=== PATIENT | female | born 1955 | race Caucasian/White ===

== ENCOUNTER 2017-01-09 18:21 | Observation (INO) | payer OTHER, MEDICARE ==
[2017-01-09 18:32] LABS: BASOPHIL# 0.1 X 10^3uL (0.0-0.1); BASOPHILS 0.7 % (0.0-2.0); EOSINOPHILS 1.8 % (0.0-6.0); EOSINOPHILS# 0.2 X 10^3uL (0.0-0.4); HEMOGLOBIN 16.1 g/dL (12.0-16.0); LYMPHOCYTES 26.7 % (20.0-40.0); LYMPHOCYTES# 2.5 X 10^3uL (0.8-3.8); MEAN CELL VOLUME 90.6 fL (80.0-100.0); MEAN CORPUSCULAR HEMOGLOBIN 31.7 pg (29.0-35.0); MEAN PLATELET VOLUME 8.8 fL (7.4-10.4); MONOCYTES 5.9 % (2.0-10.0); MONOCYTES# 0.6 X 10^3uL (0.2-1.0); NEUTROPHILS 64.9 % (54.0-75.0); RED BLOOD COUNT 5.07 X 10^6uL (4.20-6.10); RED CELL DISTRIBUTION WIDTH 12.3 % (11.5-14.5); WHITE BLOOD COUNT 9.4 X 10^3uL (3.9-10.7)
[2017-01-09 18:42] LABS: CALCIUM 9.6 mg/dL (8.4-10.2); POTASSIUM 3.7 mmol/L (3.5-5.1)
[2017-01-09 18:54] LABS: TROPONIN I 0.02 ng/mL (0.00-0.034)
[2017-01-09 20:12] LABS: URINE MUCUS NONE SEEN (Up to 25%); URINE RBC NONE SEEN (0-5/hpf)
[2017-01-09 20:45] LABS: ALBUMIN 4.6 g/dL (3.5-5.0); BILIRUBIN, DIRECT 0.2 mg/dL (0.0-0.4); BILIRUBIN, TOTAL 0.8 mg/dL (0.2-1.3)
[2017-01-09 20:48] LABS: URINE APPEARANCE CLEAR; URINE COLOR YELLOW; URINE LEUKOCYTE ESTERASE NEGATIVE (NEGATIVE); URINE NITRITE NEGATIVE (NEGATIVE); URINE PROTEIN 10mg/dL (trace) (NEG - TRACE)
[2017-01-09 20:49] LABS: URINE BILIRUBIN NEGATIVE (NEGATIVE); URINE BLOOD TRACE (NEGATIVE); URINE GLUCOSE NORMAL (NEGATIVE); URINE KETONE NEGATIVE (NEGATIVE); URINE SQUAMOUS EPITHELIAL CELL 0-5/hpf (<= 15/hpf); URINE UROBILINOGEN NORMAL (NEG-1mg/dL); URINE WBC 0-4/hpf (0-4/hpf)
[2017-01-09 20:50] LABS: URINE BACTERIA NONE SEEN (<10/hpf)
[2017-01-09] MEDS ORDERED: PREGABALIN 75 MG CAPSULE PO SCH (21:00)
[2017-01-09] MEDS ORDERED: FAMOTIDINE 20 MG TABLET PO SCH (21:00)
[2017-01-09] MEDS ORDERED: HOME MEDICATION LIST NEEDED 1 EA EACH MISC ONE (22:10)
[2017-01-09] MEDS ORDERED: MAG-AL PLUS XS SUSP 30 ML UDC PO PRN (22:10)
[2017-01-09] MEDS ORDERED: POLYETHYLENE GLYCOL 3350 17 GM POWD.PACK PO PRN (22:10)
[2017-01-09] MEDS ORDERED: ACETAMINOPHEN 325 MG TABLET PO PRN (22:10)
[2017-01-09] MEDS ORDERED: MORPHINE SULFATE 2 MG/ML SYR IV PRN (22:19)
[2017-01-09] MEDS ORDERED: ONDANSETRON HCL 4 MG/2 ML VIAL IV PRN (22:25)
[2017-01-09] MEDS ORDERED: NORMAL SALINE 1,000 ML IV SCH (23:00)
--- NOTE | 2017-01-09 23:10 | ER PHYSICIAN DOCUMENTATION ---
Physician Documentation [facility] Name:Charlie Lewis Age:61 yrs Sex:Female :1955 Arrival Date:01/09/2017 Time:18:21 Bed4 Private MD:Aaron Smith ED, John Disposition: 01/09/17 20:48 Admit ordered for Ivana Bishop. Preliminary diagnosis are Dehydration, Acute Renal/Kidney Failure, Nontraumatic. - Bed requested for Medical/Surgical. - Condition is Fair. - Problem is new. - Symptoms have improved. 23 HR OBS Yes HPI: 01/09 19:36 This 61 yrs old Female presents to ER via EMS with complaints of Near Syncope.jm 19:36 The patient has experienced near-syncope, almost passed out, felt dizzy. Onset: The jm symptom(s)/episode began/occurred today. Duration: The patient has had multiple episodes. Context: occurred while the patient was standing. Associated injury: The patient did not suffer any apparent associated injury. Associated signs and symptoms: Pertinent positives: diaphoresis, dizziness, lightheadedness, nausea, vomiting. The patient has experienced similar episodes in the past, Pt w hx of hypotension . Pt here for vomiting, near syncope, and dizziness. Pt has been measuring her BP at home and its been low. . Historical: - Allergies: Requip; Phenergan; - Home Meds: 1. morphine 2. hctz 3. Lisinopril Oral 4. Clonidine Oral 5. Cytomel Oral 6. ecitalopram 7. Nexium Oral 8. Ranitidine Oral - PMHx: GERD; anemia; atypical NM; renal failure- acute; liver damage; - PSHx: spinal fusion and other spine surgeries; - Tetanus: < 10 years. - Ebola Screening: : Patient negative for fever greater than or equal to 101.5 degrees Fahrenheit, and additional compatible Ebola Virus Disease symptoms. Patient denies exposure to infectious person. Patient denies travel to an Ebola-affected area in the 21 days before illness onset. No symptoms or risks identified at this time. . - Immunization history: Flu Vaccine unknown. - Social history: Smoking status: Patient states was never smoker of tobacco. ROS: 20:30 Constitutional: Negative for fever. jm 20:30 ENT: Negative for rhinorrhea, sinus congestion. 20:30 Cardiovascular: Negative for chest pain. 20:30 Abdomen/GI: Positive for nausea, vomiting, Negative for abdominal pain. 20:30 Neuro: Positive for dizziness, near syncope. 20:30 All other systems are negative. Exam: 20:31 Constitutional: The patient appears alert, awake, comfortable. 20:31 Eyes: Periorbital structures: appear normal, Conjunctiva: normal. 20:31 ENT: Mouth: is normal, Voice: is normal. 20:31 Neck: Thyroid: appears normal, Trachea: is midline with no obvious abnormalities. 20:31 Cardiovascular: Rate: normal, Rhythm: regular. 20:31 Respiratory: Respirations: normal, Breath sounds: are normal. 20:31 Abdomen/GI: Bowel sounds: normal, Palpation: abdomen is soft and non-tender. 20:31 Musculoskeletal/extremity: Pulses: are normal with no appreciated deficits, Sensation intact. 20:31 Skin: Appearance: Color: pink, no rash present. 20:31 Neuro: Mentation: is normal, Memory: is normal. 20:31 Psych: Behavior/mood is pleasant, cooperative, Affect is calm. Vital Signs: 18:32 BP 128 / 44; Pulse 72; Resp 16; Temp 98.9(O); Pulse Ox 91% on R/A; Weight 72.57 kg (R); tg Height 5 ft. 4 in. (162.56 cm) (R); Pain 0/10; 19:00 BP 85 / 35; Pulse 60; Resp 17; Pulse Ox 91% on 2 lpm NC; lb 19:32 BP 90 / 43; Pulse 61; Resp 16; Pulse Ox 94% on 2 lpm NC; lb 20:03 BP 109 / 46; Pulse 60; Resp 15; Pulse Ox 95% 2 lpm ; lb 22:19 BP 121 / 54; Pulse 61; Resp 15; Pulse Ox 95% on 2 lpm NC; Pain 0/10; lb 23:07 BP 96 / 40; Pulse 61; Resp 14; Pulse Ox 96% on 2 lpm NC; Pain 0/10; lb 18:32 Body Mass Index 27.46 (72.57 kg, 162.56 cm) tg MDM: 18:25 Patient medically screened. 19:51 EKG attached nf 20:31 Differential Diagnosis: dehydration, hypotension, renal insufficiency. . Neurological jm re-evaluation: normal neurological exam including cranial nerves, orientation, mentation, motor and sensory exam, cerebellar testing, GCS normal, and normal gait. Data reviewed: vital signs, nurses notes, old medical records, lab test result(s), EKG, radiologic studies, and as a result, I will admit patient. Test interpretation: by ED physician or midlevel provider: plain radiologic studies, ECG. Counseling: I had a detailed discussion with the patient and/or guardian regarding: the historical points, exam findings, and any diagnostic results supporting the discharge/admit diagnosis, lab results, radiology results, the need for further work-up and treatment in the hospital. ECG:. Response to treatment: the patient's symptoms have markedly improved after treatment. Physician consultation: Ivana Bishop MD regarding admission, and will see patient immediately. 20:39 ED course: Pt's BP much improved after 3LNS. Symptoms have improved as well. . 01/09 18:33 Order name: CBC AUTO DIF, MDIF/RMOR IF IND; Complete Time: 21:03 [facility] 01/09 18:55 Order name: BASIC METABOLIC PANEL; Complete Time: 21:03 [facility] 01/09 18:55 Order name: TROPONIN I; Complete Time: 21:03 [facility] 01/09 20:48 Order name: HEPATIC PANEL; Complete Time: 21:03 [facility] 01/09 20:49 Order name: UA W/ MICRO -CULTURE IF IND; Complete Time: 21:03 [facility] 01/10 06:34 Order name: CBC AUTO DIF, MDIF/RMOR IF IND [facility] 01/10 06:46 Order name: BASIC METABOLIC PANEL [facility] 01/10 06:46 Order name: HEPATIC PANEL [facility] 01/10 06:46 Order name: TROPONIN I [facility] 01/09 18:26 Order name: 12-lead EKG; Complete Time: 18:36 01/09 18:26 Order name: Continuous Cardiac Monitoring; Complete Time: 18:36 01/09 18:26 Order name: I & O; Complete Time: 18:36 01/09 18:26 Order name: NPO; Complete Time: 18:36 01/09 18:26 Order name: Oxygen; Complete Time: 18:36 01/09 18:26 Order name: Pulse Ox Continuous; Complete Time: 18:36 EC:31 Rhythm is regular. QRS [place] is Normal. NE interval is normal. QRS interval is normal. jm No Q waves. T waves are Normal. No ST changes noted. Dispensed Medications: 18:50 Drug: NS 0.9% 1000 ml; Route: IV; Rate: bolus; Site: left antecubital; Delivery: tg [place] Tubing; 19:12 Follow up: IV Status: Completed infusion; IV Intake: 950ml lb 19:13 Drug: NS 0.9% 1000 ml; Route: IV; Rate: bolus; Site: left antecubital; lb 19:52 Follow up: IV Status: Completed infusion; IV Intake: 1000ml lb 20:04 Drug: NS 0.9% 1000 ml; Route: IV; Rate: bolus; Site: left antecubital; lb 22:07 Follow up: IV Status: Completed infusion; IV Intake: 1000ml lb 22:05 CANCELLED (Physician Discretion): NS 0.9% 1000 ml IV at bolus once jm 22:07 Drug: NS 0.9% 1000 ml; Route: IV; Rate: 150 ml/hr; Site: left antecubital; lb 23:06 Follow up: IV Status: Infusion continued upon admission; IV Intake: 300ml lb Signatures: Petros Mijares RN RN Rhoda Granger, EMILY RN Maxim Posada MD MD jm Bollock, Lynda lb
--- NOTE | 2017-01-09 23:10 | ER NURSING DOCUMENTATION ---
Nurse's Notes [facility] Name:Charlie Lewis Age:61 yrs Sex:Female :1955 Arrival Date:01/09/2017 Time:18:21 Bed4 Private MD:Aaron Smith Diagnosis:Dehydration;Acute Renal/Kidney Failure, Nontraumatic Presentation: 01/09 18:24 Presenting complaint: Patient states: Dizzy, low BP, vomiting, Chest pain. Transition tg of care: patient was not received from another setting of care. 18:24 Acuity: GIUSEPPE 2 tg 18:24 Method Of Arrival: EMS: 410 tg Triage Assessment: 18:31 General: Appears in no apparent distress, Behavior is cooperative, pleasant. Pain: tg Denies pain. Neuro: Level of Consciousness is awake, alert, Oriented to person, place, time, event. Cardiovascular: Rhythm is sinus rhythm. Respiratory: Respiratory effort is even, unlabored. GI: Reports vomiting. : Reports burning with urination. Derm: Skin is pink, warm & dry. Historical: - Allergies: Requip; Phenergan; - Home Meds: 1. morphine 2. hctz 3. Lisinopril Oral 4. Clonidine Oral 5. Cytomel Oral 6. ecitalopram 7. Nexium Oral 8. Ranitidine Oral - PMHx: GERD; anemia; atypical ID; renal failure- acute; liver damage; - PSHx: spinal fusion and other spine surgeries; - Tetanus: < 10 years. - Ebola Screening: : Patient negative for fever greater than or equal to 101.5 degrees Fahrenheit, and additional compatible Ebola Virus Disease symptoms. Patient denies exposure to infectious person. Patient denies travel to an Ebola-affected area in the 21 days before illness onset. No symptoms or risks identified at this time. . - Immunization history: Flu Vaccine unknown. - Social history: Smoking status: Patient states was never smoker of tobacco. Screenin:34 Infectious Disease Risk Unable to Obtain. Abuse screen: Denies threats or abuse. Denies tg injuries from another. Nutritional screening: No deficits noted. Assessment: 18:34 See Triage Assessment done by same RN. tg 18:51 Reassessment: BP meds- did not take today. tg 19:01 Reassessment: care of patient endorsed. skin warm and dry. states no improvement after lb 500 ml of fluids. will continue to monitor. 20:03 Reassessment: Up to bathroom with minimal assist. steady on her feet. voided 350cc lb clear urine. denies dizziness.. 23:04 Reassessment: Patient states feeling better. Patient states symptoms have improved. lb 23:06 Reassessment: lung sounds remain clear after IVF. lb Vital Signs: 18:32 BP 128 / 44; Pulse 72; Resp 16; Temp 98.9(O); Pulse Ox 91% on R/A; Weight 72.57 kg (R); tg Height 5 ft. 4 in. (162.56 cm) (R); Pain 0/10; 19:00 BP 85 / 35; Pulse 60; Resp 17; Pulse Ox 91% on 2 lpm NC; lb 19:32 BP 90 / 43; Pulse 61; Resp 16; Pulse Ox 94% on 2 lpm NC; lb 20:03 BP 109 / 46; Pulse 60; Resp 15; Pulse Ox 95% 2 lpm ; lb 22:19 BP 121 / 54; Pulse 61; Resp 15; Pulse Ox 95% on 2 lpm NC; Pain 0/10; lb 23:07 BP 96 / 40; Pulse 61; Resp 14; Pulse Ox 96% on 2 lpm NC; Pain 0/10; lb 18:32 Body Mass Index 27.46 (72.57 kg, 162.56 cm) tg ED Course: 18:23 EKG done. (by ED staff). Reviewed by Maxim Ramos MD. Oxygen Oxygen administration via tg nasal cannula @ 2L/min. 18:24 Patient arrived in ED. ds 18:24 Aaron Smith is Private Physician. ds 18:24 Petros Mijares RN is Primary Nurse. tg 18:25 Triage completed. tg 18:25 Maxim Ramos MD is Attending Physician. pamela 18:34 Arm band placed on. tg 18:34 Valuables Remains with patient Patient has correct armband on for positive tg identification. Placed in gown. Bed in low position. Call light in reach. Side rails up X 1. shelter monitor on. Pulse ox on. 18:51 Report given to EMILY Rivera. tg 19:51 EKG attached nf 20:47 Ivana Bishop MD is Admitting Physician. Administered Medications: 18:50 Drug: NS 0.9% 1000 ml; Route: IV; Rate: bolus; Site: left antecubital; Delivery: tg [place] Tubing; 19:12 Follow up: IV Status: Completed infusion; IV Intake: 950ml lb 19:13 Drug: NS 0.9% 1000 ml; Route: IV; Rate: bolus; Site: left antecubital; lb 19:52 Follow up: IV Status: Completed infusion; IV Intake: 1000ml lb 20:04 Drug: NS 0.9% 1000 ml; Route: IV; Rate: bolus; Site: left antecubital; lb 22:07 Follow up: IV Status: Completed infusion; IV Intake: 1000ml lb 22:05 CANCELLED (Physician Discretion): NS 0.9% 1000 ml IV at bolus once jm 22:07 Drug: NS 0.9% 1000 ml; Route: IV; Rate: 150 ml/hr; Site: left antecubital; lb 23:06 Follow up: IV Status: Infusion continued upon admission; IV Intake: 300ml lb Intake: 19:12 IV: 950ml; Total: 950ml. lb 19:52 IV: 1000ml; Total: 1950ml. lb 22:07 IV: 1000ml; Total: 2950ml. lb 23:06 IV: 3300ml (NS); Total: 6250ml. lb 23:06 IV: 300ml; Total: 6550ml. lb Output: 23:06 Urine: 400ml (Voided); Total: 400ml. lb Outcome: 20:48 Decision to Admit by Provider. 23:05 Admitted to Med/surg accompanied by nurse, via stretcher, with oxygen. lb 23:05 Condition: stable 23:05 Discharge Assessment: Patient awake, alert and oriented x 3. No cognitive and/or functional deficits noted. Patient verbalized understanding of disposition instructions. 23:05 Instructed on need to admit 23:08 Patient left the ED. lb Signatures: Petros Mijares RN RN tg Friel, Nicole, RN RN nf ot, Meagan, Maxim Peralta MD MD jm Bollock, Lynda lb
[2017-01-09] MEDS ORDERED: FAMOTIDINE 20 MG TABLET ONE (23:56)
[2017-01-09] MEDS ORDERED: PREGABALIN 75 MG CAPSULE PO ONE (23:56)
[2017-01-10] MEDS ORDERED: O2 HUMIDIFIER 650 ML BOTTLE INHALATION ONE (00:22)
[2017-01-10 06:09] LABS: BASOPHILS 0.8 % (0.0-2.0); EOSINOPHILS 3.4 % (0.0-6.0); EOSINOPHILS# 0.2 X 10^3uL (0.0-0.4); HEMATOCRIT 40.1 % (36.0-48.0); HEMOGLOBIN 13.5 g/dL (12.0-16.0); LYMPHOCYTES 37.8 % (20.0-40.0); LYMPHOCYTES# 2.2 X 10^3uL (0.8-3.8); MEAN CELL VOLUME 91.3 fL (80.0-100.0); MEAN CORPUS. HGB CONCENTRATION 33.7 g/dL (32.0-36.0); MEAN CORPUSCULAR HEMOGLOBIN 30.8 pg (29.0-35.0); MEAN PLATELET VOLUME 9.3 fL (7.4-10.4); MONOCYTES 6.6 % (2.0-10.0); MONOCYTES# 0.4 X 10^3uL (0.2-1.0); NEUTROPHILS 51.4 % (54.0-75.0); NEUTROPHILS# 3.1 X 10^3uL (2.6-6.7); PLATELET COUNT 185 X 10^3uL (130-440); RED BLOOD COUNT 4.39 X 10^6uL (4.20-6.10); RED CELL DISTRIBUTION WIDTH 12.2 % (11.5-14.5); WHITE BLOOD COUNT 5.9 X 10^3uL (3.9-10.7)
[2017-01-10 06:14] LABS: ALBUMIN 3.1 g/dL (3.5-5.0); ALKALINE PHOSPHATASE 62 U/L (38-126); ALT 39 U/L (9-52); AST 29 U/L (14-36); BILIRUBIN, TOTAL 0.9 mg/dL (0.2-1.3); BLOOD UREA NITROGEN 16 mg/dL (7-17); CALCIUM 8.6 mg/dL (8.4-10.2); CHLORIDE 112 mmol/L (98-107); EST GLOMERULAR FILTRATION RATE 38 mL/min; GLUCOSE 88 mg/dL (70-100); SODIUM 143 mmol/L (137-145); TOTAL PROTEIN 5.7 g/dL (6.3-8.2)
[2017-01-10] MEDS ORDERED: PANTOPRAZOLE 40 MG TABLET PO SCH (06:30)
[2017-01-10 06:45] LABS: TROPONIN I < 0.012 ng/mL (0.00-0.034)
[2017-01-10 11:46] VITALS: BP 166/66; PULSE 72; RESP 12; TEMP 98.5; O2SAT 94
[2017-01-10] MEDS ORDERED: FAMOTIDINE 20 MG TABLET PO SCH (21:00)
[2017-01-10] MEDS ORDERED: PREGABALIN 75 MG CAPSULE PO SCH (21:00)
--- NOTE | 2017-01-10 22:15 | SHORT STAY SUMMARY ---
DATE OF ADMISSION: 01/09/17 DATE OF DISCHARGE: 01/10/17 ATTENDING PHYSICIAN: Chandu Parra MD HISTORY OF PRESENT ILLNESS: Patient is a 61-year-old female who since 01/06/17 was noted to have a bit of slurred speech, fatigue, tiredness, dizziness, and was somewhat out of it per her . Patient acknowledged poor p.o. fluid intake. She did have some nausea and diarrhea around that, but this has resolved. Yesterday, patient checked her blood pressure and it was 70 systolic. She presented to the Emergency Room for dehydration and hypotension She has had a similar episode in the past. ALLERGIES: Requip, Phenergen. MEDICATIONS Morphine sulfate 7.5 mg p.o. q.i.d. Ritalin 5 mg p.o. t.i.d. [place] thyroid 60 mg p.o. q.a.m. Lyrica 150 mg p.o. q.h.s. Cytomel 25 mcg p.o. daily. Estradiol vaginal cream 1 gram 2 times per week as needed for menopause. Lexapro 20 mg p.o. daily. Bupropion XL 300 mg p.o. q.h.s. Clonidine ER 0.1 mg p.o. b.i.d. and will taken an extra tablet PRN hypertension. Hydrochlorothiazide 12.5 mg p.o. q.a.m. Lisinopril 10 mg p.o. daily. Nexium 20 mg p.o. daily. Ranitidine 150 mg p.o. daily. PAST MEDICAL HISTORY 1. T5-T9 spinal fusion, complicated by myocardial infarction, acute renal failure, acute liver failure secondary to anemia 2005. 2. Gastroesophageal reflux disease. 3. Peptic ulcer disease. 4. Hypothyroidism. 5. Depression. 6. Osteoporosis. 7. 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 SOCIAL HISTORY: , no children. Retired. No smoking. No alcohol. FAMILY HISTORY: Mother with osteoporosis. Father with heart disease and alcoholism. REVIEW OF SYSTEMS: No chest pain, chest pressure, chest tightness or other anginal symptoms. No cerebrovascular accident symptoms. No lung, kidney stones or infections, hepatitis, seizures, hypertension, hyperlipidemia, skin, allergy or bleeding disorders. No urinary problems. PREVENTATIVE HEALTH: Gets annual flu shot. Had one of the pneumonia shots for unclear reasons. PHYSICAL EXAMINATION VITAL SIGNS: Blood pressure 120/44, pulse 92, respiratory rate 16. Temperature 98.0. Room air pulse oxygen 91%. Repeat blood pressure dropped down to 85/35 with pulse 60 which carie to 96/40 with pulse 61 by the time patient was admitted. GENERAL: Well-nourished, well-developed overweight female, NAD, alert and oriented x3. HEENT: EOMI. PERRL. Normal conjunctivae. TMs normal. No coryza. Pharynx not injected. Midline structures. NECK: No lymphadenopathy. No thyromegaly. No carotid bruits. CHEST: Clear. No rales, rhonchi or wheezes. Good breath sounds and symmetry throughout. COR: RRR without murmurs, gallops, rubs or clicks. No jugular venous distention. No ectopy. ABDOMEN: Soft, nontender. No hepatosplenomegaly. No masses. No bruits. No inguinal nodes. Bowel sounds present. LOWER EXTREMITIES: No edema. Good peripheral pulses. Fingernail beds, normal. NEUROLOGIC: Cranial nerves 2-12 intact. Motor 5/5. Sensory intact. At the time of my exam, patient was completely asymptomatic with respect to the above symptoms. LABORATORY DATA: White blood cell count 9.4, hemoglobin and hematocrit 16.1/46.0 , platelets 257,000, sodium 141, potassium 3.7, chloride 101, CO2 29, BUN 24, creatinine 2.5, glucose 83, calcium 9.6. Total bilirubin 0.8, AST 58, ALT 44, alkaline phosphatase 78, total protein 8.0, albumin 4.6, troponin I 0.020 ( normal). Urinalysis with specific gravity 1.010, trace protein, trace blood; otherwise negative with negative micro except 5-10 hyaline casts. EKG: Normal sinus rhythm at 65 b.p.m., otherwise normal. HOSPITAL COURSE: Patient was admitted with profound dehydration with associated acute renal failure, dizziness, and hypotension. Patient was hydrated overnight and by the following morning, the dehydration, dizziness, hypotension and acute renal failure had all improved with a discharge BUN 16 and creatinine 1.5. Patient felt dramatically improved. She has had no further diarrhea during her stay. At this time, I suspect that patient has simply had poor p.o. fluid intake for awhile, and the bout of diarrhea seemed to exacerbate the situation. DISCHARGE INSTRUCTIONS: Patient may participate in activities as able. She is on a no-added salt diet and I have encouraged increased p.o. fluid intake to at least 2.5 quarts per day. She will have a follow up appointment at [facility] in 1 week and would benefit from BMP to recheck kidney function. Call or return to clinic or go to the Emergency Room if beings to worsen once again. DISCHARGE MEDICATIONS Bupropion 300 mg p.o. q.h.s. Clonidine ER 0.1 mg p.o. b.i.d., may take an extra tablet 0.1 mg p.o. PRN. Lexapro 20 mg p.o. daily. Estradiol vaginal cream 1 gram 2 times per week. Cytomel 25 mcg p.o. daily. Lisinopril 10 mg p.o. daily. Ritalin 5 mg p.o. t.i.d. Morphine sulfate 7.5 mg p.o. q.i.d. Lyrica 150 mg p.o. q.h.s. Ranitidine 150 mg p.o. daily. [place] thyroid 60 mg p.o. daily. Nexium 20 mg p.o. daily. Hydrochlorothiazide has been discontinued in light of tendency towards dehydration and acute renal failure. Copies to: [facility] MTDD
== END 2017-01-10 10:17 | disposition home or self-care (01) ==
LOC: ER 18:21 → IN 22:53
PROVIDERS: ADMIT Family Medicine; ATTEND Family Medicine
DX: R55 Syncope and collapse (principal); E86.0 Dehydration; N17.9 Acute kidney failure, unspecified; I12.9 Hypertensive chronic kidney disease with stage 1 through stage 4 chronic kidney disease, or unspecified chronic kidney disease; K72.00 Acute and subacute hepatic failure without coma; M54.5 Low back pain; M15.9 Polyosteoarthritis, unspecified; K21.9 Gastro-esophageal reflux disease without esophagitis; G47.37 Central sleep apnea in conditions classified elsewhere; E03.9 Hypothyroidism, unspecified; D50.9 Iron deficiency anemia, unspecified; F32.89 Other specified depressive episodes; I25.2 Old myocardial infarction; Z79.899 Other long term (current) drug therapy
CPT/HCPCS: 36415; 80048; 80076; 81001; 84484; 85025; 93005; 93041; 96360; 96361; 99285; A0425; A0427; E0555; G0378; J7030